=== PATIENT | male | born 1955 | race Caucasian/White ===

== ENCOUNTER 2023-06-17 07:57 | Outpatient (CLI) | payer BC ==
[2023-06-17] MEDS ORDERED: Iopamidol-370 76% 500 ML MDV (1 ML CHARGE) ONE (12:40)
== END 2023-06-17 07:58 | disposition home or self-care (01) ==
LOC: BICCT 07:57
PROVIDERS: ATTEND Family Medicine
DX: R10.11 Right upper quadrant pain (principal); R10.31 Right lower quadrant pain; K57.30 Diverticulosis of large intestine without perforation or abscess without bleeding; I51.7 Cardiomegaly
CPT/HCPCS: 74160; Q9967

== ENCOUNTER 2024-08-23 08:52 | Outpatient (CLI) | payer MEDICARE | END 2024-08-23 08:53 | disposition home or self-care (01) | LOC: BICRAD 08:52 | DX: M54.50 Low back pain, unspecified (principal); M47.816 Spondylosis without myelopathy or radiculopathy, lumbar region | CPT/HCPCS: 72100 ==

== ENCOUNTER 2024-09-27 07:37 | Outpatient (CLI) | payer MEDICARE, OTHER | END 2024-09-27 07:38 | disposition home or self-care (01) | LOC: BICMRI 07:37 | DX: M54.41 Lumbago with sciatica, right side (principal); G89.29 Other chronic pain; M48.061 Spinal stenosis, lumbar region without neurogenic claudication | CPT/HCPCS: 70210; 72148 ==